=== PATIENT | male | born 1945 | race American Indian/Alaskan Native ===

== ENCOUNTER 2021-06-30 09:20 | Day surgery (SDC) | payer MEDICARE ==
[2021-06-30] MEDS ORDERED: SODIUM CHLORIDE 0.9% 500 ML 500 ML IV SCH (11:00)
[2021-06-30 11:43] LABS: Hematocrit 32.4 % (35.5-45.6); Hemoglobin 11.2 gm/dl (11.8-15.2); Mean Corpuscular HGB Conc 35 % (32-34); Mean Corpuscular Volume 98 fl (84-94); Platelet Count 171 K/mm3 (140-440); Red Cell Distribution Width 15.7 % (13.2-15.2)
[2021-06-30 11:55] LABS: INR 0.99 (0.87-1.13)
[2021-06-30 11:56] LABS: Partial Thromboplastin Time 28.6 Sec. (24.2-36.6)
[2021-06-30] MEDS ORDERED: HEPARIN/NS 5000 UNIT/500ML 1,000 ML IR ONE (13:03)
[2021-06-30] MEDS ORDERED: LIDOCAINE (2%) 20 MG/1 ML VIAL 20 ML MDV INFILTRATI ONE (13:04)
[2021-06-30] MEDS ORDERED: NITROGLYCERIN SYRINGE 0 ML ONE (13:05)
[2021-06-30] MEDS ORDERED: ceFAZolin/Water 2 GM/20 ML 2 GM/20 ML SYRINGE IV ONE (13:22)
[2021-06-30] MEDS: fentaNYL 100 MCG/2 ML INJ ONE ×4 (13:29→14:13)
[2021-06-30] MEDS: MIDAZOLAM 2 MG/2 ML INJ ONE ×4 (13:29→14:13)
[2021-06-30] MEDS ORDERED: MIDAZOLAM 2 MG/2 ML INJ ONE (13:49)
[2021-06-30] MEDS ORDERED: fentaNYL 100 MCG/2 ML INJ ONE (13:50)
[2021-06-30] MEDS: HEPARIN 10,000 UNITS/10 ML VIAL ONE ×2 (13:55→14:36)
[2021-06-30] MEDS ORDERED: NITROGLYCERIN DRIP 50 MG/250 ML BOTTLE ONE (14:06)
[2021-06-30] MEDS ORDERED: VERAPAMIL 5 MG/2 ML INJ ONE (14:07)
[2021-06-30] MEDS ORDERED: SODIUM CHLORIDE 0.9% 1000 ML 1,000 ML ONE (14:07)
[2021-06-30] MEDS ORDERED: HEPARIN/NS 5000 UNIT/500ML 500 ML IR ONE (14:21)
--- NOTE | 2021-06-30 15:40 | Short Stay Summary ---
Short Stay Documentation Date of service: 06/30/21 Narrative H&P: 75-year-old male with past medical history of end-stage renal disease who presents with critical limb ischemia of the right lower extremity with need for endovascular revascularization. Risks, benefits, and alternatives discussed. Patient agrees with procedure. - History Principal diagnosis: CLI H&P: obtained from office - Allergies and Medications Current Medications: Allergies acetaminophen [From Percocet] Allergy (Verified 06/30/21 10:39) Nausea hydrocodone [From Lortab] Allergy (Verified 06/30/21 10:39) Itching oxycodone [From Percocet] Allergy (Verified 06/30/21 10:39) Nausea Home Medications Medication Instructions Recorded Confirmed Last Taken Type Amiodarone [Cordarone 200 MG TAB] 200 mg PO DAILY 06/30/21 06/30/21 06/29/21 History 200 mg Apixaban [Eliquis] 5 mg PO BID 06/30/21 06/30/21 06/28/21 History 5 mg Calcium Carbonate [Tums 500MG CHEW] 1 tab PO PRN PRN 06/30/21 06/30/21 Unknown History Fexofenadine HCl [Aller-Fex] 180 mg PO DAILY 06/30/21 06/30/21 06/29/21 History 180 mg Folic Acid/Vit B Complex and C 800 mcg PO DAILY 06/30/21 06/30/21 06/29/21 His tory [Dialyvite 800 Chewable Wafer] 800 mg Furosemide [Lasix TAB] 80 mg PO DAILY 06/30/21 06/30/21 06/29/21 History 80 mg Insulin Aspart 8 units SQ TID 06/30/21 06/30/21 06/29/21 History 8 units Insulin Detemir [Levemir Flextouch] 10 units SQ HS 06/30/21 06/30/21 06/29/21 History 4 units Isosorbide Mononitrate [Isosorbide 30 mg PO DAILY 06/30/21 06/30/21 06/29/21 His tory Mononitrate ER] 30 mg Ondansetron HCl [Zofran] 4 mg PO Q8H PRN 06/30/21 06/30/21 06/29/21 History 4 mg Pantoprazole [Protonix TAB] 40 mg PO DAILY 06/30/21 06/30/21 06/29/21 History 40 mg Salonpas Patch 1 patch TRANSDERMA DAILY 06/30/21 06/30/21 06/29/21 History 1 oatch allopurinoL [Zyloprim] 100 mg PO DAILY 06/30/21 06/30/21 06/29/21 History 100 mg cilostazoL [Pletal] 50 mg PO BID 06/30/21 06/30/21 06/29/21 History 50 mg guaiFENesin/DEXTROMETHORPHAN 1 tab PO Q12H 06/30/21 06/30/21 06/29/21 History [Mucinex Dm ER 600-30 mg Tablet] 1 tab megestroL [Megestrol] 40 mg PO DAILY PRN 06/30/21 06/30/21 06/29/21 History 40 mg traMADoL [Ultram 50 MG tab] 50 mg PO Q6H PRN 06/30/21 06/30/21 Unknown History Active Medications Sodium Chloride (Nacl 0.9% 500 Ml) 500 mls @ 50 mls/hr IV DIRECT JEANETTE - Physical exam General appearance: no acute distress HEENT: EOMI Lungs: Normal air movement Gastrointestinal: obese Extremities: normal temperature, normal color, no abnormal (Ulcer of the right forefoot) - Brief post op/procedure progress note Date of procedure: 06/30/21 Pre-op diagnosis: ESRD with CLI RLE Post-op diagnosis: same Procedure: 1. Ultrasound-guided access of the left common femoral artery. 2. Angiography of the left lower extremity. 3. Selection of the abdominal aorta with angiography. 4. Selection of the right external iliac artery, common femoral artery, superficial femoral artery, and popliteal artery with angiography of the right lower extremity. 5. Placement of WIRION 3.5 mm to 6 mm on embolic protection device in the right popliteal artery 6. Atherectomy of the right common femoral artery with a 1.5 mm solid CSI de vice with angioplasty with a 6.5 mm x 60 mm shockwave angioplasty balloon and 7 mm x 60 mm LUTONIX balloon 7. Atherectomy of the right above-knee popliteal artery with a 1.5 mm solid CSI device with angioplasty with a 6.5 mm x 60 mm shockwave angioplasty balloon and 6 mm x 80 mm iNPACT balloon 8. Capture of the embolic protection device. 9. Removal of the left femoral sheath with hemostasis achieved with manual pressure. Anesthesia: local (with conscious sedation) Surgeon: HAILY DAVIDSON Estimated blood loss: minimal Condition: stable - Hospital course Hospital course: Patient tolerated the procedure well. No immediate postprocedural complicatio ns. Patient discharged 4 hours after manual hold completed. 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
--- NOTE | 2021-06-30 15:49 | Operative Report ---
Operative Report Operative Report: EXAM: 1. Ultrasound-guided access of the left common femoral artery. 2. Angiography of the left lower extremity. 3. Selection of the abdominal aorta with angiography. 4. Selection of the right external iliac artery, common femoral artery, superficial femoral artery, and popliteal artery with angiography of the right lower extremity. 5. Placement of WIRION 3.5 mm to 6 mm on embolic protection device in the right popliteal artery 6. Atherectomy of the right common femoral artery with a 1.5 mm solid CSI device with angioplasty with a 6.5 mm x 60 mm shockwave angioplasty balloon and 7 mm x 60 mm LUTONIX balloon 7. Atherectomy of the right above-knee popliteal artery with a 1.5 mm solid CSI device with angioplasty with a 6.5 mm x 60 mm shockwave angioplasty balloon and 6 mm x 80 mm iNPACT balloon 8. Capture of the embolic protection device. 9. Removal of the left femoral sheath with hemostasis achieved with manual pressure. DATE: 06/30/2021 DAIRY FARMER: HAILY DAVIDSON MD INDICATION: Critical limb ischemia of the right lower extremity atherosclerotic disease with right forefoot MEDICATIONS: Please see nursing report for full details. DEVICES: Wirion 3.5-6 mm LUTONIX 7 mm x 60 mm balloon iNPACT 6 mm x 80 mm balloon Shockwave 6.5 x 60 mm angioplasty balloon 1.5 mm CSI solid atherectomy CONTRAST: Please see [employer] report for full details PROCEDURE: The groins were prepped and draped in a sterile fashion. Ultrasound was used to identify the left common femoral artery which was patent. Under direct ultrasound guidance, the left common femoral artery was accessed with a 21-gauge micropuncture needle. 0.018 inch wire was passed into the aorta. Needle was exchanged for transitional dilator. Wire was exchanged for 0.035 inch wire. Transitional dilator was exchanged for a 5 Marshallese sheath. Digital subtraction angiography was performed demonstrating patency of the left proximal superficial femoral artery and profunda femoral artery. The left common femoral artery demonstrated 80% narrowing in the upper portion of the vessel. The puncture was at the bifurcation of the femoral artery and profunda femoral artery. Omni Flush was then used to select the abdominal aorta and digital subtraction angiography was performed. The infrarenal abdominal aorta, bilateral common iliac arteries, and bilateral external iliac arteries were patent. The right external iliac artery was selected and digital subtraction angiography was performed. Digital subtraction angiography demonstrated 90% narrowing of the right mid common femoral artery. The right profunda femoral artery was patent. The right superficial femoral artery was patent. The right [id number]-[id number] popliteal artery had a 99% focal stenosis. The rest of the popliteal artery was patent. The patient has three-vessel runoff to the ankle, with dominant flow through the anterior tibial artery which has intermittent 30 to 40% stenosis of the vessel. The dominant flow to the foot is to the dorsalis pedis artery. The tibioperoneal trunk is patent. The posterior tibial artery is atretic with significant narrowing and stenosis at the level of the ankle. The peroneal artery is patent. After reviewing the diagnostic angiogram I determined the patient required intervention due to the issue of critical limb ischemia. Patient was heparinized. Sheath was exchanged for a 6 [place]ese 45 cm [place] destination positioned in the right external iliac artery. Wire and catheter were then used to select the right superficial femoral artery and then was used to select the popliteal artery. Digital subtraction angiography was performed confirming position. Wirion embolic protection device was then deployed in the right mid popliteal artery. 1.5 mm CSI solid atherectomy device was then used to perform atherectomy of the right common femoral artery at medium and high settings with multiple treatments at high setting. 1.5 mm solid atherectomy device was then used to perform atherectomy of the right [id number]-tjy-sidm popliteal artery at low, medium, and high settings with multiple treatments at high settings. 6.5 mm x 60 mm shockwave angioplasty balloon was then used to perform shockwave angioplasty of the right hxoqv-swa-yckw popliteal artery and right common femoral artery. 7 mm x 60 mm Lutonix angioplasty balloon was then used to perform angioplasty of the right common femoral artery. 6 mm x 80 mm iNPACT angioplasty balloon was then used to perform angioplasty of the right kcehd-[id number]-kdxc popliteal artery. Digital subtraction angiography was performed demonstrating less than 20% residual narrowing of the right mid common femoral artery narrowing. Digital subtraction angiography was performed demonstrating less than 20% residual narrowing of the right wkhjr-gdy-jfet popliteal artery. At this point, the embolic protection device was then retrieved with the retrieval device. Digital subtraction angiography was performed demonstrating no distal embolization or change in runoff. At this point, the sheath was then retracted to the left external iliac artery and exchanged for a 6 Marshallese standard sheath. ACT was obtained which was in the 180s. Sheath was then secured in place for removal once ACT reached normal levels. Patient tolerated the procedure well. No immediate postprocedural complications. At the conclusion of the procedure, the patient had a palpable right dorsalis pedis pulse. FINDINGS: Please see procedure note above. IMPRESSION: 1. Successful atherectomy and angioplasty of the right common femoral artery and adyrv-fqq-whtv popliteal artery.
[2021-06-30] MEDS ORDERED: traMADol 50 MG TAB PO ONE (17:00)
[2021-06-30] MEDS ORDERED: hydrALAZINE 20 MG/1 ML INJ IV SCH (17:00)
[2021-06-30] MEDS ORDERED: CLOPIDOGREL 300 MG TAB PO ONE (17:00)
[2021-06-30 19:37] VITALS: BP 162/77
== END 2021-06-30 09:21 | disposition home or self-care (01) ==
LOC: CATHLABREC 09:20
PROVIDERS: ATTEND Radiology Diagnostic Radiology
DX: I70.235 Atherosclerosis of native arteries of right leg with ulceration of other part of foot (principal); I87.323 Chronic venous hypertension (idiopathic) with inflammation of bilateral lower extremity; N18.6 End stage renal disease; I12.0 Hypertensive chronic kidney disease with stage 5 chronic kidney disease or end stage renal disease; M10.9 Gout, unspecified; J45.909 Unspecified asthma, uncomplicated; Z99.2 Dependence on renal dialysis; Z79.899 Other long term (current) drug therapy; Z98.890 Other specified postprocedural states
CPT/HCPCS: 36415; 37225; 75625; 75710; 76937; 80048; 82962; 85027; 85610; 85730; C1724; C1725; C1769; C1887; C1894; C2623; J0690; J1644; J2250; J3010; J7030; J7040; Q9967